=== PATIENT | male | born 1995 | race African-American/Black ===

== ENCOUNTER 2018-08-12 14:34 | Inpatient (IN) | payer MEDICARE, MEDICAID ==
[~2018-08-12] VITALS: Ht 193 cm; Wt 108.9 kg
[2018-08-12] MEDS ORDERED: SODIUM CHLORIDE 0.9% 1,000 ML IV ONE (19:18)
[2018-08-12] MEDS ORDERED: PIPERACILLIN/TAZ 3.375G PREMIX 50 ML IV ONE (19:30)
[2018-08-12] MEDS ORDERED: VANCOMYCIN 1 G PREMIX 200 ML IV ONE (19:30)
[2018-08-12] MEDS ORDERED: KETOROLAC 30MG/ML VIAL IV ONE (20:45)
[2018-08-12 21:06] LABS: BASOPHILS % 0.7 % (0.0-2.0); EOSINOPHILS % 2.2 % (0.0-5.0); HEMATOCRIT. 49.6 % (42.0-52.0); HEMOGLOBIN. 16.6 g/dL (14.0-18.0); LYMPHOCYTES % 39.2 % (20.0-50.0); MEAN CORPUSCULAR HEMOGLOBIN 31.6 pg (28.0-32.0); MEAN CORPUSCULAR VOLUME 94.4 fL (80.0-94.0); MEAN PLATELET VOLUME 10.1 fl (7.4-10.4); NEUTROPHILS % 50.9 % (40.0-76.0); PLATELET 179 x1000/uL (130-400); RED BLOOD CELL COUNT 5.25 mill/uL (4.7-6.1); RED CELL DISTRIBUTION WIDTH 14.1 % (11.6-14.6)
[2018-08-12 21:11] LABS: CHLORIDE 108 mEq/L (98-107)
[2018-08-12 21:13] LABS: INR 1.1; PROTHROMBIN TIME 11.3 sec (9.6-11.0)
[2018-08-12] MEDS ORDERED: DOCUSATE SODIUM 100MG CAPSULE PO PRN (22:30)
[2018-08-12] MEDS ORDERED: IPRATROPIUM/ALBUTEROL 0.5-3(2.5)MG/3ML NEB INH PRN (22:30)
[2018-08-12] MEDS ORDERED: ONDANSETRON HCL 4MG/2ML INJ IV PRN (22:30)
[2018-08-12] MEDS ORDERED: ACETAMINOPHEN 325MG TABLET PO PRN (22:30)
[2018-08-12] MEDS ORDERED: CLONIDINE 0.1MG TABLET PO PRN (22:30)
[2018-08-12] MEDS ORDERED: MAGNESIUM/ALUMINUM HYDROXIDE/SIMETHICONE 30ML UDC PO PRN (22:30)
[2018-08-13] VITALS (7 sets, daily range): BP systolic 135–160; BP diastolic 58–86
[2018-08-13] MEDS ORDERED: SULF1TAB48 MT ×2 (01:21→16:19)
[2018-08-13] MEDS ORDERED: LYR25 PO (01:21)
[2018-08-13] MEDS: HYDROCODONE/ACETAMINOPHEN 5/325MG TABLET PO PRN ×3 (01:28→14:24)
[2018-08-13] MEDS ORDERED: SODIUM CHLORIDE 0.9% 1,000 ML IV SCH (01:38)
[2018-08-13] MEDS: PIPERACILLIN/TAZ 3.375G PREMIX 50 ML IV SCH ×2 (04:10→13:02)
[2018-08-13] MEDS: VANCOMYCIN 1500MG in DEXTROSE 5% WATER 250ML IV SCH ×2 (05:08→14:24)
[2018-08-13] MEDS ORDERED: ENOXAPARIN 40MG/0.4ML SYR SUBCUT SCH (09:00)
[2018-08-13 17:18] LABS: BASOPHILS % 0.6 % (0.0-2.0); EOSINOPHILS % 2.6 % (0.0-5.0); HEMATOCRIT. 46.6 % (42.0-52.0); HEMOGLOBIN. 15.7 g/dL (14.0-18.0); LYMPHOCYTES % 42.5 % (20.0-50.0); MEAN CORPUSCULAR HEMOGLOBIN 31.7 pg (28.0-32.0); MEAN CORPUSCULAR VOLUME 93.8 fL (80.0-94.0); MEAN PLATELET VOLUME 10.3 fl (7.4-10.4); MONOCYTES % 5.7 % (2.0-8.0); NEUTROPHILS % 48.6 % (40.0-76.0); PLATELET 155 x1000/uL (130-400); RED BLOOD CELL COUNT 4.96 mill/uL (4.7-6.1)
[2018-08-13] MEDS ORDERED: PIPERACILLIN/TAZ 3.375G PREMIX 50 ML IV SCH (22:00)
== END 2018-08-13 17:05 | disposition home or self-care (01) | DRG 571 ==
LOC: ER 14:34 → 6EST 22:12 → EDBEDREQTM 22:31 → EDBEDREQ 22:31 → ENRESERV 23:18
PROVIDERS: ADMIT Internal Medicine; ATTEND Internal Medicine
PROC: 0JBR0ZZ Excision of Left Foot Subcutaneous Tissue and Fascia, Open Approach (ICD-10-PCS; principal; 2018-08-13)
PROC: 0JBQ0ZZ Excision of Right Foot Subcutaneous Tissue and Fascia, Open Approach (ICD-10-PCS; 2018-08-13)
DX: L97.529 Non-pressure chronic ulcer of other part of left foot with unspecified severity (principal); G82.20 Paraplegia, unspecified; F17.210 Nicotine dependence, cigarettes, uncomplicated; L97.519 Non-pressure chronic ulcer of other part of right foot with unspecified severity; Z99.3 Dependence on wheelchair; Z91.018 Allergy to other foods
CPT/HCPCS: 36415; 71045; 73630; 80061; 83605; 83735; 84443; 85651; 87070; 87075; 99285; J1650; J1885; J2543; J3370; J7030; J7060

== ENCOUNTER 2019-01-09 13:59 | Emergency (ER) | payer MEDICARE, MEDICAID ==
[~2019-01-09] VITALS: Ht 172.7 cm; Wt 104.0 kg
[~2019-01-09 13:59] MED LIST: LYR25 PO; SULF1TAB48 MT
[2019-01-09] MEDS ORDERED: AZITHROMYCIN 500 MG TABLET PO ONE (15:30)
[2019-01-09] MEDS ORDERED: CEFTRIAXONE SODIUM 250 MG/VIAL IM ONE (15:30)
[2019-01-09 15:36] LABS: CLARITY URINE CLEAR (CLEAR); COLOR URINE DARK YELLOW (YELLOW); KETONES URINE TRACE (NEGATIVE); LEUKOCYTE ESTERASE URINE 2+ (NEGATIVE); NITRITE URINE NEGATIVE (NEGATIVE); OCCULT BLOOD URINE NEGATIVE (NEGATIVE); PH URINE 6.5 (4.5-8.0); PROTEIN URINE TRACE (NEGATIVE)
[2019-01-09 17:53] VITALS: BP 122/78
[2019-01-09 17:56] LABS: CHLORIDE 110 mEq/L (98-107)
[2019-01-09 18:02] LABS: BASOPHILS % 0.6 % (0.0-2.0); EOSINOPHILS % 1.6 % (0.0-5.0); HEMOGLOBIN. 15.8 g/dL (14.0-18.0); LYMPHOCYTES % 44.4 % (20.0-50.0); MEAN CORPUSCULAR HEMOGLOBIN 32.6 pg (28.0-32.0); MEAN CORPUSCULAR VOLUME 97.1 fL (80.0-94.0); MEAN PLATELET VOLUME 10.8 fl (7.4-10.4); MONOCYTES % 4.9 % (2.0-8.0); NEUTROPHILS % 48.5 % (40.0-76.0); PLATELET 239 x1000/uL (130-400); RED BLOOD CELL COUNT 4.84 mill/uL (4.7-6.1); RED CELL DISTRIBUTION WIDTH 15.6 % (11.6-14.6)
[2019-01-09 19:03] LABS: PLATELET ESTIMATE NORMAL
[2019-01-12 04:09] LABS: CHLAMYDIA TRACHOMATIS NAA Negative (Negative); NEISSERIA GONORRHOEAE NAA Positive (Negative)
== END 2019-01-09 19:15 | disposition home or self-care (01) ==
LOC: ER 13:59
DX: N39.0 Urinary tract infection, site not specified (principal); G82.20 Paraplegia, unspecified; Z11.3 Encounter for screening for infections with a predominantly sexual mode of transmission; Z98.890 Other specified postprocedural states; Z91.018 Allergy to other foods; Z79.899 Other long term (current) drug therapy
CPT/HCPCS: 36415; 80053; 81003; 85025; 87086; 87491; 87591; 96372; 99283; J0696

== ENCOUNTER 2019-05-19 23:14 | Emergency (ER) | payer MEDICARE, MEDICAID ==
[~2019-05-19] VITALS: Ht 193 cm; Wt 105.0 kg
[2019-05-20 00:54] LABS: CLARITY URINE CLOUDY (CLEAR); COLOR URINE YELLOW (YELLOW); KETONES URINE NEGATIVE (NEGATIVE); LEUKOCYTE ESTERASE URINE 2+ (NEGATIVE); NITRITE URINE POSITIVE (NEGATIVE); OCCULT BLOOD URINE NEGATIVE (NEGATIVE); PH URINE 6.5 (4.5-8.0); PROTEIN URINE NEGATIVE (NEGATIVE); SPECIFIC GRAVITY URINE 1.027 (1.005-1.030)
[2019-05-20] MEDS ORDERED: HYDROCODONE/ACETAMINOPHEN 10/325MG TABLET PO ONE (02:15)
[2019-05-20] MEDS ORDERED: CEFTRIAXONE SODIUM 250 MG/VIAL IM ONE (02:15)
[2019-05-20] MEDS ORDERED: AZITHROMYCIN 500 MG TABLET PO ONE (02:15)
[2019-05-20] MEDS ORDERED: ONDANSETRON 4MG ODT PO ONE (02:15)
[2019-05-20 02:20] VITALS: BP 112/55
[2019-05-20] MEDS ORDERED: SULFAMETHOXAZOLE/TRIMETHOPRIM 800/160MG TABLET PO SCH (03:00)
[2019-05-23 05:09] LABS: NEISSERIA GONORRHOEAE NAA Negative (Negative)
== END 2019-05-20 02:21 | disposition home or self-care (01) ==
LOC: ER 23:14
DX: N39.0 Urinary tract infection, site not specified (principal); A64 Unspecified sexually transmitted disease; Z91.018 Allergy to other foods
CPT/HCPCS: 81003; 87077; 87186; 87491; 87591; 99283

== ENCOUNTER 2019-06-04 18:44 | Emergency (ER) | payer MEDICAID, MEDICARE ==
[~2019-06-04] VITALS: Ht 193 cm; Wt 105.0 kg
[2019-06-04 19:15] VITALS: BP 119/84
[2019-06-04] MEDS ORDERED: CEFTRIAXONE 1 G PREMIX 50 ML IV ONE (20:15)
[2019-06-04] MEDS ORDERED: AZITHROMYCIN 500 MG TABLET PO ONE (20:15)
[2019-06-04] MEDS ORDERED: SODIUM CHLORIDE 0.9% 1,000 ML IV ONE (20:23)
[2019-06-04 21:39] LABS: BASOPHILS % 0.6 % (0.0-2.0); EOSINOPHILS % 0.9 % (0.0-5.0); HEMATOCRIT. 43.5 % (42.0-52.0); HEMOGLOBIN. 15.2 g/dL (14.0-18.0); LYMPHOCYTES % 39.2 % (20.0-50.0); MEAN CORPUSCULAR HEMOGLOBIN 33.4 pg (28.0-32.0); MEAN CORPUSCULAR VOLUME 95.9 fL (80.0-94.0); MONOCYTES % 4.5 % (2.0-8.0); NEUTROPHILS % 54.8 % (40.0-76.0); PLATELET 157 x1000/uL (130-400); RED BLOOD CELL COUNT 4.54 mill/uL (4.7-6.1); RED CELL DISTRIBUTION WIDTH 13.4 % (11.6-14.6)
[2019-06-04 21:48] LABS: CLARITY URINE CLOUDY (CLEAR); COLOR URINE YELLOW (YELLOW); KETONES URINE NEGATIVE (NEGATIVE); LEUKOCYTE ESTERASE URINE 3+ (NEGATIVE); NITRITE URINE NEGATIVE (NEGATIVE); OCCULT BLOOD URINE NEGATIVE (NEGATIVE); PROTEIN URINE NEGATIVE (NEGATIVE); UROBILINOGEN URINE 0.2 E.U./dL (0.2-1.0)
[2019-06-04] MEDS ORDERED: ONDANSETRON HCL 4MG/2ML INJ IV ONE (23:30)
[2019-06-04] MEDS ORDERED: KETOROLAC 15MG/ML VIAL IV ONE (23:30)
[2019-06-04 23:32] LABS: CHLORIDE 107 mEq/L (98-107)
== END 2019-06-05 02:00 | disposition home or self-care (01) ==
LOC: ER 18:44
DX: N39.0 Urinary tract infection, site not specified (principal); Z91.018 Allergy to other foods; Z98.890 Other specified postprocedural states
CPT/HCPCS: 36415; 71045; 74176; 80053; 81003; 85025; 87086; 87491; 87591; 93005; 96365; 96375; 99285; J0696; J1885; J2405; J7030